=== PATIENT | male | born 1940 | race African-American/Black ===

== ENCOUNTER 2022-01-24 13:31 | Inpatient (IN) | payer MEDICARE, MEDICAID ==
[~2022-01-24] VITALS: Ht 188 cm; Wt 82.2 kg
[2022-01-24] MEDS ORDERED: AMIODARONE HCL 50MG/ML 3ML VIAL IV ONE (14:45)
[2022-01-24] MEDS ORDERED: SODIUM CHLORIDE 0.9% 250 ML IV ONE (15:00)
[2022-01-24] MEDS ORDERED: CALCIUM GLUCONATE 100MG/ML 10ML VIAL IV ONE (15:00)
[2022-01-24 15:48] LABS: BG BASE EXCESS -1.2 mmol/L (-2.0-2.0); BG CARBOXYHEMOGLOBIN 1.2 % (0.5-1.5); BG DEOXYHEMOGLOBIN 4.7 % (0.0-5.0); BG FRACTION INSPIRED OXYGEN 44; BG HCO3 ACT 21.8 mmol/L (22.0-26.0); BG OXYGEN SATURATION 95.2 % (92.0-98.5); BG OXYHEMOGLOBIN 94.1 % (94.0-97.0); BG PCO2 31.2 mmHg (35.0-45.0); BG PH 7.462 (7.350-7.450); BG PO2 79.4 mmHg (75.0-100.0); BG SAMPLE SITE RIGHT BRACHIAL; BG TOTAL HEMOGLOBIN 12.1 g/dL (12.0-18.0); BG VENT MODE NASAL CANNULA
[2022-01-24 15:55] LABS: HEMATOCRIT. 41.7 % (42.0-52.0); HEMOGLOBIN. 13.2 g/dL (14.0-18.0); MEAN CORPUSCULAR HEMOGLOBIN 31.6 pg (28.0-32.0); MEAN CORPUSCULAR VOLUME 99.9 fL (80.0-94.0); MEAN PLATELET VOLUME 12.5 fl (7.4-10.4); PLATELET 51 x1000/uL (130-400); RED BLOOD CELL COUNT 4.18 mill/uL (4.7-6.1); RED CELL DISTRIBUTION WIDTH 16.2 % (11.6-14.6)
[2022-01-24 16:11] LABS: CHLORIDE 105 mEq/L (98-107)
[2022-01-24 16:21] LABS: PLATELET ESTIMATE MARKEDLY DECREASED
[2022-01-24] MEDS ORDERED: SODIUM BICARBONATE 8.4% 1 MEQ/ML 50ML SYR IV NR (16:30)
[2022-01-24] MEDS ORDERED: CALCIUM GLUCONATE 100MG/ML 10ML VIAL IV NR (16:30)
[2022-01-24] MEDS ORDERED: INSULIN REGULAR (HUMULIN R) 300UNITS/3ML VIAL IV NR (16:30)
[2022-01-24] MEDS ORDERED: DEXTROSE 50% WATER 50ML SYRINGE IV NR (16:30)
[2022-01-24] MEDS ORDERED: FUROSEMIDE 40MG/4ML VIAL IVP NR (17:00)
[2022-01-24] MEDS ORDERED: AMIODARONE HCL 150 MG in DEXT 5% WATER 100 ML IV NR (18:00)
[2022-01-24] MEDS: ALBUTEROL (0.083%) 2.5MG/3ML NEB HHN SCH (18:03)
[2022-01-24 18:19] LABS: HEPATITIS B SURFACE ANTIGEN NEGATIVE
[2022-01-24 21:00] VITALS: BP 128/61
[2022-01-24 21:30] VITALS: BP 127/50
[2022-01-24 22:00] VITALS: BP 107/53
[2022-01-24 22:30] VITALS: BP 100/52
[2022-01-24 23:00] VITALS: BP 91/47
[2022-01-24 23:30] VITALS: BP 121/41
[2022-01-25] VITALS (11 sets, daily range): BP systolic 72–140; BP diastolic 40–94
[2022-01-25] MEDS: ACETAMINOPHEN 650MG SUPP PR PRN ×2 (07:22→15:29)
[2022-01-25] MEDS ORDERED: ONDANSETRON HCL 4MG/2ML INJ IV PRN (08:30)
[2022-01-25] MEDS ORDERED: IPRATROPIUM/ALBUTEROL 0.5-3(2.5)MG/3ML NEB HHN PRN (08:30)
[2022-01-25 08:53] LABS: BG BASE EXCESS 2.9 mmol/L (-2.0-2.0); BG CARBOXYHEMOGLOBIN 0.6 % (0.5-1.5); BG DEOXYHEMOGLOBIN 3.5 % (0.0-5.0); BG FRACTION INSPIRED OXYGEN 36; BG HCO3 ACT 25.4 mmol/L (22.0-26.0); BG METHEMOGLOBIN 0.3 % (0.0-1.5); BG OXYGEN SATURATION 96.5 % (92.0-98.5); BG OXYHEMOGLOBIN 95.6 % (94.0-97.0); BG PCO2 32.1 mmHg (35.0-45.0); BG PH 7.517 (7.350-7.450); BG PO2 83.6 mmHg (75.0-100.0); BG SAMPLE SITE RIGHT BRACHIAL; BG TOTAL HEMOGLOBIN 11.1 g/dL (12.0-18.0); BG VENT MODE NASAL CANNULA
[2022-01-25] MEDS ORDERED: VANCOMYCIN 1250MG in DEXTROSE 5% WATER 250ML IV SCH (10:00)
[2022-01-25 10:04] LABS: HEMATOCRIT. 33.8 % (42.0-52.0); HEMOGLOBIN. 10.8 g/dL (14.0-18.0); MEAN CORPUSCULAR HEMOGLOBIN 31.4 pg (28.0-32.0); MEAN CORPUSCULAR VOLUME 98.6 fL (80.0-94.0); MEAN PLATELET VOLUME 11.6 fl (7.4-10.4); PLATELET 56 x1000/uL (130-400); RED BLOOD CELL COUNT 3.43 mill/uL (4.7-6.1); RED CELL DISTRIBUTION WIDTH 15.6 % (11.6-14.6)
[2022-01-25] MEDS ORDERED: SODIUM CHLORIDE 0.9% 250 ML IV ONE (10:15)
[2022-01-25] MEDS ORDERED: AMIODARONE HCL 900 MG in DEXT 5% WATER 482 ML IV SCH (11:00)
[2022-01-25] MEDS: CEFTRIAXONE 1,000 MG in DEXTROSE 5% WATER 50 ML IV SCH (15:18)
[2022-01-25] MEDS ORDERED: PNEUMOCOCCAL 23-VAL P-SAC VAC 0.5 ML IM ONE (17:00)
[2022-01-25 22:37] LABS: PLATELET ESTIMATE MARKEDLY DECREASED
[2022-01-26] VITALS (17 sets, daily range): BP systolic 93–127; BP diastolic 44–82
[2022-01-26 09:09] LABS: HEMOGLOBIN. 9.4 g/dL (14.0-18.0); MEAN CORPUSCULAR HEMOGLOBIN 31.5 pg (28.0-32.0)
[2022-01-26 09:28] LABS: HEMATOCRIT. 29.3 % (42.0-52.0); MEAN CORPUSCULAR VOLUME 97.9 fL (80.0-94.0); MEAN PLATELET VOLUME 11.5 fl (7.4-10.4); RED BLOOD CELL COUNT 2.99 mill/uL (4.7-6.1); RED CELL DISTRIBUTION WIDTH 16.1 % (11.6-14.6)
[2022-01-26 09:36] LABS: PLATELET 49 x1000/uL (130-400)
[2022-01-26 11:10] LABS: PLATELET ESTIMATE MARKEDLY DECREASED
[2022-01-26] MEDS: CEFTRIAXONE 1,000 MG in DEXTROSE 5% WATER 50 ML IV SCH (14:33)
[2022-01-26] MEDS: ACETAMINOPHEN 650MG SUPP PR PRN (18:39)
[2022-01-26] MEDS ORDERED: VANCOMYCIN 750MG PREMIX 150 ML IV NR (20:00)
[2022-01-26] MEDS: CARVEDILOL 3.125 MG TABLET PO SCH (21:00)
[2022-01-27] VITALS (11 sets, daily range): BP systolic 99–125; BP diastolic 51–109
[2022-01-27] MEDS: CARVEDILOL 3.125 MG TABLET PO SCH ×2 (09:00→21:50)
[2022-01-27] MEDS: CEFTRIAXONE 1,000 MG in DEXTROSE 5% WATER 50 ML IV SCH (17:18)
[2022-01-28] VITALS (12 sets, daily range): BP systolic 97–132; BP diastolic 54–82
[2022-01-28 07:12] LABS: BASOPHILS % 0.2 % (0.0-2.0); EOSINOPHILS % 1.4 % (0.0-5.0); HEMATOCRIT. 32.5 % (42.0-52.0); HEMOGLOBIN. 10.4 g/dL (14.0-18.0); LYMPHOCYTES % 9.1 % (20.0-50.0); MEAN CORPUSCULAR HEMOGLOBIN 31.9 pg (28.0-32.0); MEAN CORPUSCULAR VOLUME 99.5 fL (80.0-94.0); MEAN PLATELET VOLUME 11.9 fl (7.4-10.4); MONOCYTES % 11.1 % (2.0-8.0); NEUTROPHILS % 78.2 % (40.0-76.0); PLATELET 67 x1000/uL (130-400); RED BLOOD CELL COUNT 3.27 mill/uL (4.7-6.1); RED CELL DISTRIBUTION WIDTH 16.1 % (11.6-14.6)
[2022-01-28] MEDS: CARVEDILOL 3.125 MG TABLET PO SCH ×2 (08:00→20:52)
[2022-01-28] MEDS ORDERED: VANCOMYCIN 1,000 MG in DEXT 5% WATER 250 ML IV SCH ×2 (09:45→14:00)
[2022-01-28 10:29] LABS: PROTHROMBIN TIME 10.5 sec (9.6-11.0)
[2022-01-28] MEDS: ACETAMINOPHEN 650MG/20.3ML UDC PO PRN (10:32)
[2022-01-28] MEDS: AMIODARONE HCL 200 MG TABLET PO SCH (18:28)
[2022-01-28] MEDS: CEFAZOLIN 1000MG PREMIX 50 ML IV SCH (20:51)
[2022-01-29] VITALS (9 sets, daily range): BP systolic 105–145; BP diastolic 45–73
[2022-01-29 07:40] LABS: BASOPHILS % 0.2 % (0.0-2.0); EOSINOPHILS % 1.7 % (0.0-5.0); HEMATOCRIT. 31.6 % (42.0-52.0); HEMOGLOBIN. 10.3 g/dL (14.0-18.0); MEAN CORPUSCULAR HEMOGLOBIN 31.6 pg (28.0-32.0); MEAN PLATELET VOLUME 11.5 fl (7.4-10.4); MONOCYTES % 13.4 % (2.0-8.0); NEUTROPHILS % 73.7 % (40.0-76.0); PLATELET 83 x1000/uL (130-400); RED BLOOD CELL COUNT 3.26 mill/uL (4.7-6.1); RED CELL DISTRIBUTION WIDTH 15.3 % (11.6-14.6)
[2022-01-29] MEDS ORDERED: LIDOCAINE HCL/PF 1% 10 MG/ML 5ML VIAL ONE (07:49)
[2022-01-29] MEDS: AMIODARONE HCL 200 MG TABLET PO SCH ×2 (09:52→18:25)
[2022-01-29] MEDS: CARVEDILOL 3.125 MG TABLET PO SCH ×2 (09:52→21:26)
[2022-01-29] MEDS: ACETAMINOPHEN 650MG/20.3ML UDC PO PRN (09:59)
[2022-01-29] MEDS: GABAPENTIN 100MG CAPSULE PO SCH ×2 (14:38→21:25)
[2022-01-29] MEDS: CEFAZOLIN 1000MG PREMIX 50 ML IV SCH (21:26)
[2022-01-30] VITALS (14 sets, daily range): BP systolic 121–145; BP diastolic 61–87
[2022-01-30] MEDS: GABAPENTIN 100MG CAPSULE PO SCH ×3 (06:00→21:33)
[2022-01-30] MEDS ORDERED: LORAZEPAM 2MG/ML CPJ IV PRN (07:30)
[2022-01-30] MEDS ORDERED: MORPHINE SULFATE 2 MG/ML CPJ (NOT FOR IM USE) IV PRN (07:30)
[2022-01-30] MEDS ORDERED: NALOXONE HCL 0.4MG/ML VIAL IV PRN (07:45)
[2022-01-30 07:52] LABS: BASOPHILS % 0.4 % (0.0-2.0); EOSINOPHILS % 1.8 % (0.0-5.0); HEMOGLOBIN. 10.8 g/dL (14.0-18.0); MEAN CORPUSCULAR HEMOGLOBIN 31.4 pg (28.0-32.0); MEAN CORPUSCULAR VOLUME 98.4 fL (80.0-94.0); MEAN PLATELET VOLUME 11.8 fl (7.4-10.4); MONOCYTES % 11.9 % (2.0-8.0); NEUTROPHILS % 74.9 % (40.0-76.0); PLATELET 112 x1000/uL (130-400); RED BLOOD CELL COUNT 3.45 mill/uL (4.7-6.1); RED CELL DISTRIBUTION WIDTH 15.5 % (11.6-14.6)
[2022-01-30] MEDS ORDERED: POTASSIUM CHLORIDE 20MEQ/PACKET PO SCH (09:00)
[2022-01-30] MEDS ORDERED: IPRATROPIUM/ALBUTEROL 0.5-3(2.5)MG/3ML NEB HHN NR (09:00)
[2022-01-30] MEDS ORDERED: FUROSEMIDE 100MG/10ML VIAL IVP SCH (09:00)
[2022-01-30] MEDS: CARVEDILOL 3.125 MG TABLET PO SCH ×2 (09:00→21:34)
[2022-01-30] MEDS: AMIODARONE HCL 200 MG TABLET PO SCH ×2 (09:00→18:13)
[2022-01-30] MEDS ORDERED: TETRACAINE/BENZOCAINE/BUTAMBEN 20 GM SPRAY MM ONE (09:03)
[2022-01-30] MEDS ORDERED: FENTANYL CITRATE/PF 50MCG/ML 2ML VIAL ONE (09:04)
[2022-01-30] MEDS ORDERED: MIDAZOLAM HCL 5 MG/5 ML VIAL ONE (09:04)
[2022-01-30] MEDS ORDERED: LIDOCAINE 2% JELLY PREFILLED SYRINGE MM ONE (09:14)
[2022-01-30] MEDS ORDERED: ATROPINE SULFATE 1MG/10ML SYR IV PRN (10:00)
[2022-01-30] MEDS ORDERED: ACETAMINOPHEN 325MG TABLET PO PRN (10:00)
[2022-01-30] MEDS ORDERED: LIDOCAINE HCL/PF 1% 10 MG/ML 5ML VIAL ONE (10:25)
[2022-01-30] MEDS: IPRATROPIUM/ALBUTEROL 0.5-3(2.5)MG/3ML NEB HHN SCH ×2 (14:00→21:06)
[2022-01-30] MEDS: CEFAZOLIN 1000MG PREMIX 50 ML IV SCH (21:33)
[2022-01-31] VITALS: BP 120/73
[2022-01-31] MEDS: IPRATROPIUM/ALBUTEROL 0.5-3(2.5)MG/3ML NEB HHN SCH ×2 (01:25→08:44)
[2022-01-31 04:00] VITALS: BP 113/67
[2022-01-31] MEDS: GABAPENTIN 100MG CAPSULE PO SCH (06:18)
[2022-01-31 07:03] LABS: BASOPHILS % 0.5 % (0.0-2.0); EOSINOPHILS % 2.5 % (0.0-5.0); HEMATOCRIT. 32.7 % (42.0-52.0); HEMOGLOBIN. 10.6 g/dL (14.0-18.0); LYMPHOCYTES % 13.3 % (20.0-50.0); MEAN CORPUSCULAR HEMOGLOBIN 31.4 pg (28.0-32.0); MEAN CORPUSCULAR VOLUME 97.4 fL (80.0-94.0); MEAN PLATELET VOLUME 10.7 fl (7.4-10.4); MONOCYTES % 12.9 % (2.0-8.0); NEUTROPHILS % 70.8 % (40.0-76.0); PLATELET 160 x1000/uL (130-400); RED BLOOD CELL COUNT 3.36 mill/uL (4.7-6.1); RED CELL DISTRIBUTION WIDTH 15.3 % (11.6-14.6)
[2022-01-31 08:15] VITALS: BP 107/59
[2022-01-31] MEDS: CARVEDILOL 3.125 MG TABLET PO SCH ×2 (08:36→11:55)
[2022-01-31] MEDS: AMIODARONE HCL 200 MG TABLET PO SCH (09:00)
[2022-01-31 12:02] VITALS: BP 120/58
[2022-01-31 12:09] VITALS: BP 120/58
[2022-01-31] MEDS ORDERED: AMIODARONE HCL 200 MG TABLET PO SCH (17:00)
== END 2022-01-31 14:28 | disposition home or self-care (01) | DRG 721 ==
LOC: ER 13:31 → MICUSO 23:32 → 5EST 01-25 01:30 → 3WST 01-29 16:50
PROVIDERS: ADMIT Internal Medicine; ATTEND Internal Medicine
PROC: 5A2204Z Restoration of Cardiac Rhythm, Single (ICD-10-PCS; principal; 2022-01-24)
PROC: 5A1D70Z Performance of Urinary Filtration, Intermittent, Less than 6 Hours Per Day (ICD-10-PCS; 2022-01-24)
PROC: 5A1D70Z Performance of Urinary Filtration, Intermittent, Less than 6 Hours Per Day (ICD-10-PCS; 2022-01-26)
PROC: 5A1D70Z Performance of Urinary Filtration, Intermittent, Less than 6 Hours Per Day (ICD-10-PCS; 2022-01-28)
PROC: 0JPV3XZ Removal of Tunneled Vascular Access Device from Upper Extremity Subcutaneous Tissue and Fascia, Percutaneous Approach (ICD-10-PCS; 2022-01-29)
PROC: 02PAX3Z Removal of Infusion Device from Heart, External Approach (ICD-10-PCS; 2022-01-29)
PROC: 02HV33Z Insertion of Infusion Device into Superior Vena Cava, Percutaneous Approach (ICD-10-PCS; 2022-01-29)
PROC: B548ZZA Ultrasonography of Superior Vena Cava, Guidance (ICD-10-PCS; 2022-01-29)
PROC: 0JH63XZ Insertion of Tunneled Vascular Access Device into Chest Subcutaneous Tissue and Fascia, Percutaneous Approach (ICD-10-PCS; 2022-01-30)
PROC: 02HV33Z Insertion of Infusion Device into Superior Vena Cava, Percutaneous Approach (ICD-10-PCS; 2022-01-30)
PROC: B518ZZA Fluoroscopy of Superior Vena Cava, Guidance (ICD-10-PCS; 2022-01-30)
PROC: B548ZZA Ultrasonography of Superior Vena Cava, Guidance (ICD-10-PCS; 2022-01-30)
PROC: 5A1D70Z Performance of Urinary Filtration, Intermittent, Less than 6 Hours Per Day (ICD-10-PCS; 2022-01-30)
DX: T80.211A Bloodstream infection due to central venous catheter, initial encounter (principal); A41.01 Sepsis due to Methicillin susceptible Staphylococcus aureus; J96.01 Acute respiratory failure with hypoxia; G93.41 Metabolic encephalopathy; D69.6 Thrombocytopenia, unspecified; E87.3 Alkalosis; I13.11 Hypertensive heart and chronic kidney disease without heart failure, with stage 5 chronic kidney disease, or end stage renal disease; N18.6 End stage renal disease; E78.5 Hyperlipidemia, unspecified; Z20.822 Contact with and (suspected) exposure to COVID-19; E78.00 Pure hypercholesterolemia, unspecified; E87.5 Hyperkalemia; G47.33 Obstructive sleep apnea (adult) (pediatric); I48.91 Unspecified atrial fibrillation; I47.1 Supraventricular tachycardia; M19.90 Unspecified osteoarthritis, unspecified site; Z79.899 Other long term (current) drug therapy; Z99.2 Dependence on renal dialysis; Z86.73 Personal history of transient ischemic attack (TIA), and cerebral infarction without residual deficits; Z79.01 Long term (current) use of anticoagulants; Y92.89 Other specified places as the place of occurrence of the external cause
CPT/HCPCS: 36415; 36558; 36573; 36589; 36600; 71045; 76937; 77001; 80048; 80053; 80076; 80202; 82140; 82375; 82805; 82962; 83735; 83880; 84145; 84443; 84484; 85025; 86705; 86709; 86803; 87070; 87077; 87186; 87340; 87426; 90732; 90935; 93005; 93306; 93312; 93970; 97162; 97166; 99291; A4565; C1725; C1750; C1769; C1887; J0282; J0610; J0690; J0696; J1815; J1940; J2250; J3010; J3370; J3490; J7060

== ENCOUNTER 2022-03-08 12:10 | Emergency (ER) | payer MEDICARE, MEDICAID ==
[~2022-03-08] VITALS: Ht 180.3 cm; Wt 84.0 kg
[2022-03-08 12:48] VITALS: BP 118/56
[2022-03-08 17:53] LABS: CLARITY URINE CLEAR (CLEAR); COLOR URINE ORANGE (YELLOW); KETONES URINE TRACE (NEGATIVE); LEUKOCYTE ESTERASE URINE TRACE (NEGATIVE); NITRITE URINE NEGATIVE (NEGATIVE); OCCULT BLOOD URINE 3+ (NEGATIVE); PROTEIN URINE 2+ (NEGATIVE); SPECIFIC GRAVITY URINE 1.011 (1.005-1.030)
== END 2022-03-08 18:30 | disposition home or self-care (01) ==
LOC: ER 12:10
DX: R31.9 Hematuria, unspecified (principal); I12.0 Hypertensive chronic kidney disease with stage 5 chronic kidney disease or end stage renal disease; N18.6 End stage renal disease; Z99.2 Dependence on renal dialysis; Z98.890 Other specified postprocedural states
CPT/HCPCS: 81003; 99283

== ENCOUNTER 2022-06-04 11:50 | Inpatient (IN) | payer MEDICARE, MEDICAID ==
[~2022-06-04] VITALS: Ht 180.3 cm; Wt 96.2 kg
[2022-06-04] MEDS ORDERED: SODIUM CHLORIDE 0.9% 1,000 ML IV ONE (12:30)
[2022-06-04 13:39] LABS: BASOPHILS % 0.2 % (0.0-2.0); EOSINOPHILS % 0.5 % (0.0-5.0); HEMATOCRIT. 34.5 % (42.0-52.0); HEMOGLOBIN. 11.3 g/dL (14.0-18.0); LYMPHOCYTES % 9.7 % (20.0-50.0); MEAN CORPUSCULAR HEMOGLOBIN 31.3 pg (28.0-32.0); MEAN CORPUSCULAR VOLUME 95.8 fL (80.0-94.0); MEAN PLATELET VOLUME 10.9 fl (7.4-10.4); MONOCYTES % 12.8 % (2.0-8.0); NEUTROPHILS % 76.8 % (40.0-76.0); PLATELET 78 x1000/uL (130-400); RED BLOOD CELL COUNT 3.61 mill/uL (4.7-6.1); RED CELL DISTRIBUTION WIDTH 15.7 % (11.6-14.6)
[2022-06-04 13:49] LABS: CHLORIDE 95 mEq/L (98-107)
[2022-06-04] MEDS ORDERED: ASPIRIN 325MG EC TABLET PO ONE (15:45)
[2022-06-04] MEDS ORDERED: ASPIRIN 325MG EC TABLET PO NR (20:30)
[2022-06-05] VITALS (15 sets, daily range): BP systolic 97–121; BP diastolic 52–70
[2022-06-05] MEDS ORDERED: ONDANSETRON HCL 4MG/2ML INJ IV PRN (04:15)
[2022-06-05] MEDS: SEVELAMER CARBONATE 800 MG TABLET PO SCH ×3 (06:31→23:14)
[2022-06-05] MEDS: FOLIC ACID/VITAMIN B COMP W-C TABLET PO SCH (09:40)
[2022-06-05] MEDS: AMLODIPINE 10MG TABLET PO SCH (09:41)
[2022-06-05 10:39] LABS: BASOPHILS % 0.2 % (0.0-2.0); EOSINOPHILS % 0.3 % (0.0-5.0); HEMATOCRIT. 31.6 % (42.0-52.0); HEMOGLOBIN. 10.3 g/dL (14.0-18.0); LYMPHOCYTES % 8.5 % (20.0-50.0); MEAN CORPUSCULAR HEMOGLOBIN 31.2 pg (28.0-32.0); MEAN CORPUSCULAR VOLUME 95.5 fL (80.0-94.0); MONOCYTES % 12.7 % (2.0-8.0); NEUTROPHILS % 78.3 % (40.0-76.0); RED BLOOD CELL COUNT 3.31 mill/uL (4.7-6.1); RED CELL DISTRIBUTION WIDTH 15.5 % (11.6-14.6)
[2022-06-05 10:51] LABS: CHLORIDE 98 mEq/L (98-107)
[2022-06-05 11:04] LABS: HDL CHOLESTEROL 34 mg/dL (40-59); LDL CHOLESTEROL 29 mg/dL (5-100)
[2022-06-05 11:14] LABS: MEAN PLATELET VOLUME 10.9 fl (7.4-10.4); PLATELET 79 x1000/uL (130-400)
[2022-06-05] MEDS ORDERED: CEFTRIAXONE 1GM PREMIX 50 ML IV SCH (12:30)
[2022-06-05] MEDS ORDERED: VANCOMYCIN 1500MG in DEXTROSE 5% WATER 250ML IV NR (13:00)
[2022-06-05 13:56] LABS: HEPATITIS B SURFACE ANTIGEN NEGATIVE
[2022-06-06 00:13] VITALS: BP 106/57
[2022-06-06 04:13] VITALS: BP 104/59
[2022-06-06] MEDS: SEVELAMER CARBONATE 800 MG TABLET PO SCH ×3 (06:40→22:19)
[2022-06-06 08:00] VITALS: BP 123/72
[2022-06-06] MEDS: AMLODIPINE 10MG TABLET PO SCH (08:47)
[2022-06-06] MEDS: FOLIC ACID/VITAMIN B COMP W-C TABLET PO SCH (08:47)
[2022-06-06] MEDS: POVIDONE-IODINE 10% TOPICAL SOLN 240ML TOP SCH (09:00)
[2022-06-06 12:00] VITALS: BP 118/71
[2022-06-06 16:00] VITALS: BP 114/60
[2022-06-06 20:00] VITALS: BP 120/95
[2022-06-07] VITALS (17 sets, daily range): BP systolic 102–153; BP diastolic 43–96
[2022-06-07] MEDS: SEVELAMER CARBONATE 800 MG TABLET PO SCH ×3 (05:43→21:05)
[2022-06-07] MEDS: AMLODIPINE 10MG TABLET PO SCH (09:00)
[2022-06-07] MEDS: ACETAMINOPHEN 325MG TABLET PO PRN (09:53)
[2022-06-07] MEDS: POVIDONE-IODINE 10% TOPICAL SOLN 240ML TOP SCH (09:54)
[2022-06-07] MEDS: FOLIC ACID/VITAMIN B COMP W-C TABLET PO SCH (09:54)
[2022-06-07] MEDS ORDERED: IODIXANOL 320MG/ML 100 ML BOTTLE IV ONE (10:20)
[2022-06-07] MEDS ORDERED: LIDOCAINE HCL 1% 20ML VIAL (Pyxis) INJ ONE (10:20)
[2022-06-07] MEDS ORDERED: HEPARIN 1000 UNITS/ML 10ML ONE (10:20)
[2022-06-07] MEDS ORDERED: FENTANYL CITRATE/PF 50MCG/ML 2ML VIAL ONE (10:37)
[2022-06-07] MEDS ORDERED: MIDAZOLAM HCL 2 MG/2 ML VIAL ONE (10:37)
[2022-06-07] MEDS ORDERED: DIPHENHYDRAMINE 50MG/ML VIAL ONE (11:17)
[2022-06-07] MEDS: IPRATROPIUM/ALBUTEROL 0.5-3(2.5)MG/3ML NEB HHN PRN (14:06)
[2022-06-07 15:49] LABS: BASOPHILS % 0.3 % (0.0-2.0); EOSINOPHILS % 1.5 % (0.0-5.0); HEMATOCRIT. 33.8 % (42.0-52.0); LYMPHOCYTES % 12.1 % (20.0-50.0); MEAN CORPUSCULAR HEMOGLOBIN 30.8 pg (28.0-32.0); MEAN PLATELET VOLUME 10.6 fl (7.4-10.4); MONOCYTES % 13.5 % (2.0-8.0); NEUTROPHILS % 72.6 % (40.0-76.0); PLATELET 93 x1000/uL (130-400); RED BLOOD CELL COUNT 3.56 mill/uL (4.7-6.1); RED CELL DISTRIBUTION WIDTH 15.6 % (11.6-14.6)
[2022-06-07] MEDS ORDERED: VANCOMYCIN 1G PREMIX 200 ML IV NR (18:00)
[2022-06-07] MEDS: METOPROLOL TARTRATE 50MG TABLET PO SCH (21:05)
[2022-06-08] VITALS (8 sets, daily range): BP systolic 99–131; BP diastolic 55–84
[2022-06-08] MEDS: IPRATROPIUM/ALBUTEROL 0.5-3(2.5)MG/3ML NEB HHN PRN (00:07)
[2022-06-08] MEDS: ACETAMINOPHEN 325MG TABLET PO PRN (00:46)
[2022-06-08] MEDS: SEVELAMER CARBONATE 800 MG TABLET PO SCH ×3 (06:24→21:16)
[2022-06-08 06:59] LABS: HEMATOCRIT. 31.4 % (42.0-52.0); HEMOGLOBIN. 10.3 g/dL (14.0-18.0); MEAN CORPUSCULAR HEMOGLOBIN 30.9 pg (28.0-32.0); MEAN CORPUSCULAR VOLUME 94.7 fL (80.0-94.0); PLATELET 86 x1000/uL (130-400); RED BLOOD CELL COUNT 3.32 mill/uL (4.7-6.1); RED CELL DISTRIBUTION WIDTH 15.1 % (11.6-14.6)
[2022-06-08] MEDS: FOLIC ACID/VITAMIN B COMP W-C TABLET PO SCH (08:32)
[2022-06-08] MEDS: POVIDONE-IODINE 10% TOPICAL SOLN 240ML TOP SCH (08:32)
[2022-06-08] MEDS: METOPROLOL TARTRATE 50MG TABLET PO SCH ×2 (08:36→21:16)
[2022-06-08] MEDS: AMLODIPINE 10MG TABLET PO SCH (08:37)
[2022-06-08 10:14] LABS: PLATELET ESTIMATE DECREASED
[2022-06-09] MEDS: SEVELAMER CARBONATE 800 MG TABLET PO SCH ×3 (06:50→21:06)
[2022-06-09 07:27] LABS: HEMATOCRIT. 31.5 % (42.0-52.0); HEMOGLOBIN. 10.5 g/dL (14.0-18.0); MEAN CORPUSCULAR HEMOGLOBIN 31.7 pg (28.0-32.0); MEAN CORPUSCULAR VOLUME 94.7 fL (80.0-94.0); MEAN PLATELET VOLUME 10.9 fl (7.4-10.4); PLATELET 81 x1000/uL (130-400); RED BLOOD CELL COUNT 3.33 mill/uL (4.7-6.1); RED CELL DISTRIBUTION WIDTH 15.4 % (11.6-14.6)
[2022-06-09 08:00] VITALS: BP 115/59
[2022-06-09] MEDS: POVIDONE-IODINE 10% TOPICAL SOLN 240ML TOP SCH (09:00)
[2022-06-09] MEDS: METOPROLOL TARTRATE 50MG TABLET PO SCH ×2 (09:49→20:21)
[2022-06-09] MEDS: FOLIC ACID/VITAMIN B COMP W-C TABLET PO SCH (09:50)
[2022-06-09] MEDS: AMLODIPINE 10MG TABLET PO SCH (09:50)
[2022-06-09 10:35] LABS: PLATELET ESTIMATE NORMAL
[2022-06-09 12:00] VITALS: BP 93/55
[2022-06-09 16:00] VITALS: BP 118/53
[2022-06-10] VITALS (15 sets, daily range): BP systolic 90–138; BP diastolic 48–86
[2022-06-10] MEDS: ACETAMINOPHEN 325MG TABLET PO PRN ×2 (00:30→20:51)
[2022-06-10 06:11] LABS: BASOPHILS % 0.3 % (0.0-2.0); EOSINOPHILS % 2.5 % (0.0-5.0); HEMATOCRIT. 30.9 % (42.0-52.0); HEMOGLOBIN. 10.2 g/dL (14.0-18.0); LYMPHOCYTES % 11.9 % (20.0-50.0); MEAN CORPUSCULAR HEMOGLOBIN 31.1 pg (28.0-32.0); MEAN CORPUSCULAR VOLUME 94.4 fL (80.0-94.0); MEAN PLATELET VOLUME 10.5 fl (7.4-10.4); MONOCYTES % 14.6 % (2.0-8.0); NEUTROPHILS % 70.7 % (40.0-76.0); PLATELET 74 x1000/uL (130-400); RED BLOOD CELL COUNT 3.27 mill/uL (4.7-6.1); RED CELL DISTRIBUTION WIDTH 15.3 % (11.6-14.6)
[2022-06-10] MEDS: SEVELAMER CARBONATE 800 MG TABLET PO SCH ×3 (06:23→20:51)
[2022-06-10] MEDS: POVIDONE-IODINE 10% TOPICAL SOLN 240ML TOP SCH (09:00)
[2022-06-10] MEDS: METOPROLOL TARTRATE 50MG TABLET PO SCH ×2 (09:00→20:50)
[2022-06-10] MEDS: FOLIC ACID/VITAMIN B COMP W-C TABLET PO SCH (09:00)
[2022-06-10] MEDS: AMLODIPINE 10MG TABLET PO SCH (09:00)
[2022-06-11] VITALS (7 sets, daily range): BP systolic 105–122; BP diastolic 50–70
[2022-06-11] MEDS: DOCUSATE SODIUM SUGAR FREE 100MG/10ML UDC NG SCH ×3 (01:33→17:48)
[2022-06-11] MEDS: SEVELAMER CARBONATE 800 MG TABLET PO SCH ×3 (06:13→21:06)
[2022-06-11 07:21] LABS: BASOPHILS % 0.5 % (0.0-2.0); EOSINOPHILS % 2.4 % (0.0-5.0); HEMATOCRIT. 32.3 % (42.0-52.0); HEMOGLOBIN. 10.4 g/dL (14.0-18.0); LYMPHOCYTES % 10.2 % (20.0-50.0); MEAN CORPUSCULAR HEMOGLOBIN 30.8 pg (28.0-32.0); MEAN CORPUSCULAR VOLUME 95.5 fL (80.0-94.0); MEAN PLATELET VOLUME 10.6 fl (7.4-10.4); MONOCYTES % 13.9 % (2.0-8.0); PLATELET 86 x1000/uL (130-400); RED BLOOD CELL COUNT 3.39 mill/uL (4.7-6.1); RED CELL DISTRIBUTION WIDTH 15.3 % (11.6-14.6)
[2022-06-11] MEDS: POVIDONE-IODINE 10% TOPICAL SOLN 240ML TOP SCH (09:00)
[2022-06-11] MEDS: METOPROLOL TARTRATE 50MG TABLET PO SCH ×2 (09:10→21:00)
[2022-06-11] MEDS: AMLODIPINE 10MG TABLET PO SCH (09:11)
[2022-06-11] MEDS: FOLIC ACID/VITAMIN B COMP W-C TABLET PO SCH (09:11)
[2022-06-12] VITALS (15 sets, daily range): BP systolic 110–143; BP diastolic 42–74
[2022-06-12] MEDS: DIPHENHYDRAMINE 50MG CAPSULE PO PRN ×2 (00:14→21:56)
[2022-06-12] MEDS: SEVELAMER CARBONATE 800 MG TABLET PO SCH ×3 (06:54→21:55)
[2022-06-12 07:21] LABS: BASOPHILS % 0.4 % (0.0-2.0); EOSINOPHILS % 1.7 % (0.0-5.0); HEMATOCRIT. 31.6 % (42.0-52.0); HEMOGLOBIN. 10.5 g/dL (14.0-18.0); LYMPHOCYTES % 12.3 % (20.0-50.0); MEAN CORPUSCULAR HEMOGLOBIN 31.3 pg (28.0-32.0); MEAN CORPUSCULAR VOLUME 94.5 fL (80.0-94.0); MONOCYTES % 13.4 % (2.0-8.0); NEUTROPHILS % 72.2 % (40.0-76.0); RED BLOOD CELL COUNT 3.35 mill/uL (4.7-6.1); RED CELL DISTRIBUTION WIDTH 14.7 % (11.6-14.6)
[2022-06-12] MEDS: POVIDONE-IODINE 10% TOPICAL SOLN 240ML TOP SCH (09:00)
[2022-06-12] MEDS: METOPROLOL TARTRATE 50MG TABLET PO SCH ×2 (09:00→21:56)
[2022-06-12] MEDS: FOLIC ACID/VITAMIN B COMP W-C TABLET PO SCH (09:16)
[2022-06-12] MEDS: AMLODIPINE 10MG TABLET PO SCH (09:18)
[2022-06-12] MEDS: DOCUSATE SODIUM SUGAR FREE 100MG/10ML UDC NG SCH ×2 (09:38→18:41)
[2022-06-12 11:58] LABS: PLATELET 103 x1000/uL (130-400)
[2022-06-12] MEDS: IPRATROPIUM/ALBUTEROL 0.5-3(2.5)MG/3ML NEB HHN PRN (12:23)
[2022-06-13] VITALS: BP 105/63
[2022-06-13 04:00] VITALS: BP 100/53
[2022-06-13] MEDS: SEVELAMER CARBONATE 800 MG TABLET PO SCH (06:29)
[2022-06-13 08:00] VITALS: BP 117/85
[2022-06-13] MEDS: DOCUSATE SODIUM SUGAR FREE 100MG/10ML UDC NG SCH (09:38)
[2022-06-13] MEDS: FOLIC ACID/VITAMIN B COMP W-C TABLET PO SCH (09:38)
[2022-06-13] MEDS: POVIDONE-IODINE 10% TOPICAL SOLN 240ML TOP SCH (09:38)
[2022-06-13] MEDS: METOPROLOL TARTRATE 50MG TABLET PO SCH (09:38)
[2022-06-13] MEDS: AMLODIPINE 10MG TABLET PO SCH (09:38)
[2022-06-13] MEDS ORDERED: IPRATROPIUM/ALBUTEROL 0.5-3(2.5)MG/3ML NEB HHN PRN (09:45)
[2022-06-13] MEDS ORDERED: METHYLPREDNISOLONE SOD SUCC 40 MG/ML VIAL IV SCH (10:00)
[2022-06-13] MEDS ORDERED: APIXABAN 2.5 MG TABLET PO SCH (10:00)
[2022-06-13 12:00] VITALS: BP 102/53
[2022-06-13] MEDS ORDERED: IPRATROPIUM BROMIDE (0.02%) 0.5MG/2.5ML NEB HHN SCH (12:00)
[2022-06-13] MEDS ORDERED: DILTIAZEM HCL 30MG TABLET PO SCH (12:00)
[2022-06-13 15:50] VITALS: BP 111/80
== END 2022-06-13 15:57 | DRG 181 ==
LOC: ER 12:22 → 3WST 16:46 → 6EST 06-09 03:00
PROVIDERS: ADMIT Internal Medicine; ATTEND Internal Medicine
PROC: 5A1D70Z Performance of Urinary Filtration, Intermittent, Less than 6 Hours Per Day (ICD-10-PCS; 2022-06-05)
PROC: 047M3ZZ Dilation of Right Popliteal Artery, Percutaneous Approach (ICD-10-PCS; principal; 2022-06-07)
PROC: 04FM3ZZ Fragmentation of Right Popliteal Artery, Percutaneous Approach (ICD-10-PCS; 2022-06-07)
PROC: 047R3ZZ Dilation of Right Posterior Tibial Artery, Percutaneous Approach (ICD-10-PCS; 2022-06-07)
PROC: B41F1ZZ Fluoroscopy of Right Lower Extremity Arteries using Low Osmolar Contrast (ICD-10-PCS; 2022-06-07)
PROC: 5A1D70Z Performance of Urinary Filtration, Intermittent, Less than 6 Hours Per Day (ICD-10-PCS; 2022-06-07)
PROC: 5A1D70Z Performance of Urinary Filtration, Intermittent, Less than 6 Hours Per Day (ICD-10-PCS; 2022-06-10)
PROC: 5A1D70Z Performance of Urinary Filtration, Intermittent, Less than 6 Hours Per Day (ICD-10-PCS; 2022-06-12)
DX: E11.52 Type 2 diabetes mellitus with diabetic peripheral angiopathy with gangrene (principal); G93.41 Metabolic encephalopathy; I13.2 Hypertensive heart and chronic kidney disease with heart failure and with stage 5 chronic kidney disease, or end stage renal disease; L89.116 Pressure-induced deep tissue damage of right upper back; E44.1 Mild protein-calorie malnutrition; I70.261 Atherosclerosis of native arteries of extremities with gangrene, right leg; E11.22 Type 2 diabetes mellitus with diabetic chronic kidney disease; L89.156 Pressure-induced deep tissue damage of sacral region; L89.126 Pressure-induced deep tissue damage of left upper back; E87.1 Hypo-osmolality and hyponatremia; D63.1 Anemia in chronic kidney disease; N18.6 End stage renal disease; I50.9 Heart failure, unspecified; E78.00 Pure hypercholesterolemia, unspecified; S90.129A Contusion of unspecified lesser toe(s) without damage to nail, initial encounter; J44.9 Chronic obstructive pulmonary disease, unspecified; I48.0 Paroxysmal atrial fibrillation; R26.2 Difficulty in walking, not elsewhere classified; E11.621 Type 2 diabetes mellitus with foot ulcer; I45.10 Unspecified right bundle-branch block; Z82.49 Family history of ischemic heart disease and other diseases of the circulatory system; Z68.29 Body mass index [BMI] 29.0-29.9, adult; Z99.2 Dependence on renal dialysis; Z86.73 Personal history of transient ischemic attack (TIA), and cerebral infarction without residual deficits; Z79.4 Long term (current) use of insulin; W18.39XA Other fall on same level, initial encounter; Y93.89 Activity, other specified; Y92.89 Other specified places as the place of occurrence of the external cause; Y99.8 Other external cause status; Z20.822 Contact with and (suspected) exposure to COVID-19
CPT/HCPCS: 36415; 37224; 37228; 37232; 71045; 75710; 80048; 80053; 80061; 80202; 82040; 82962; 83880; 84134; 84484; 85025; 86803; 87340; 87426; 90935; 92610; 93005; 93306; 93923; 94640; 97110; 97162; 97166; 97530; 99285; C1725; C1760; C1769; C1887; C1893; C1894; J0696; J1200; J1644; J2250; J2920; J3010; J3370; J3490; J7030; J7060; Q0163; Q9967; C1761